=== PATIENT | female | born 1960 | race Caucasian/White ===

== ENCOUNTER 2017-07-04 12:21 | Emergency (ER) | payer OTHER, SELFPAY ==
[2017-07-04 12:22] VITALS: BP 128/97; PULSE 84; RESP 16; TEMP 36.9; O2SAT 97; BMI 23.1
[2017-07-04 13:51] LABS: Bacteria 0 SEEN /hpf (None Seen); Mucous, Urine 0 SEEN /hpf (<or=2+); Red Blood Cells-Urine 0 SEEN /hpf (0-5)
[2017-07-04 13:56] LABS: Color, Urine Yellow (Yellow); Glucose, Dipstick Normal (Normal); Ketone-Dipstick Negative (Negative); Leukocyte Esterase-Dipstick Negative /ul (Negative); Nitrite-Dipstick Negative (Negative); Occult Blood-Urine Negative /ul (Negative); Protein-Dipstick Negative (Negative); Specific Gravity, Urine 1.015 (1.002-1.030); Urine Bilirubin Dipstick Negative (Negative); Urine Clarity Clear (Clear); Urine Urobilinogen Normal (Normal)
[2017-07-04 13:58] LABS: Pregnancy, Serum, hCG Quali. NEGATIVE Negative (0-9 Nonpreg)
[2017-07-04 14:07] LABS: Squamous Epithelial Cells - UA 0-5 SEEN /hpf (5-10); White Blood Cells 0-5 SEEN /hpf (0-5)
--- NOTE | 2017-07-04 14:27 | CT_ITS ---
STUDY: CT ABDOMEN AND PELVIS WITHOUT CONTRAST REASON FOR EXAM: Female, 56 years old. 4 day history of abdominal pain and right flank pain. RADIATION DOSAGE (If Supplied By Facility): CTDIvol = ( 6.63 ) mGy, DLP = ( 309.86 ) mGycm TECHNIQUE: Transaxial images were obtained from the dome of the diaphragm to the symphysis pubis without oral contrast, and without intravenous contrast. Sagittal and coronal images were reconstructed. Individualized dose optimization techniques were used for this CT. COMPARISON: None. FINDINGS: Minimal increased markings at the right lung base suggests atelectasis. The visualized portions of the heart are within normal limits. Normal liver. Normal gallbladder and extrahepatic biliary system. Normal spleen. Normal pancreas. Normal bilateral adrenal glands. Normal right kidney. Normal left kidney. Normal visualized stomach. Normal small intestine. Moderate amount of fecal material is seen in the colon. The appendix is visualized and appears normal. Normal abdominal aorta. Normal inferior vena cava. Normal retroperitoneum. Normal urinary bladder. Normal abdominal wall. There are diffuse degenerative changes of the visualized lumbar spine. CT/Abdomen/Pelvis without Cont IMPRESSION: Moderate amount of fecal material is seen in the colon. Electronically Signed: Ramesh Queen MD at 15:04 EDT Tel [phone], Service support ,
[2017-07-04 14:40] VITALS: BP 130/64; PULSE 87; RESP 18; O2SAT 100
--- NOTE | 2017-07-04 15:38 | ED.VISSUMM ---
- ER Visit Summary Date of Service: 07/04/17 Chief Complaint: Right flank pain History of Present Illness: The patient is a 56 F presenting with right flank pain which started on Tuesday. She states pain has been intermittent. It is in the right lower quadrant radiating to her back. She has had decreased appetite. She has had constipation. She denies dysuria or hematuria. No history of kidney stones. No fever or chills. No other complaints. On arrival to the ED patient states her pain is currently resolved. Physical Examination: Vitals are stable. Patient is afebrile. Alert no acute distress. HEENT exam is unremarkable. Neck is supple. Lungs are clear and equal bilaterally. Heart is regular rate and rhythm. Abdomen is soft mild right lower quadrant tenderness, no rebound or guarding Back: No CVA tenderness Extremities are unremarkable. Skin is warm and dry. No focal neurologic deficit. Remainder of exam is unremarkable. Emergency Department Course and Treatment: HCG negative. Urinalysis unremarkable. CT abdomen pelvis shows moderate amount of stool, normal appendix. Patient declined pain medications in the emergency department. On reevaluation, she continues to be pain-free. She is advised to take MiraLAX. Advised follow-up with primary care physician. Advised return to ED for worsening complaints. Disposition: Discharge home Impression: Right flank pain, constipation This note was generated with [employer] dictation software. It may contain incorrect words, spelling, and punctuation that were not noted in review of the chart prior to signing ED Disposition - Plan for ED Patient: Chief Complaint: Flank Pain Referrals: Sam Birmingham MD [Primary Care Provider] -
--- NOTE | 2017-07-04 15:45 | ED.DEP ---
ED Disposition - Plan for ED Patient: Chief Complaint: Flank Pain Instructions: ED Constipation Referrals: Sam Birmingham MD [Primary Care Provider] -
[2017-07-04 15:55] VITALS: BP 127/67; PULSE 64; RESP 18; O2SAT 99
== END 2017-07-04 15:56 | disposition home or self-care (01) ==
PROVIDERS: Emergency Provider Emergency Medicine; Family Provider Family Medicine; PCP Family Medicine
DX: R10.31 Right lower quadrant pain (principal); K59.00 Constipation, unspecified; E78.00 Pure hypercholesterolemia, unspecified; Z79.899 Other long term (current) drug therapy
CPT/HCPCS: 74176; 81001; 84703; 99283; A4216

== ENCOUNTER 2021-07-16 09:47 | Day surgery (SDC) | payer OTHER, SELFPAY ==
--- NOTE | 2021-06-30 09:48 | PCM.HP.BLA ---
History and Physical Date of Admission: 07/16/21 HPI: The patient is a 60 year old female presenting for pre-operative visit. She is scheduled for Hysteroscopy D&C with polyp resection , for PMB and endocervical polyp on 07/16/21. Procedure discussed along with risks, benefits and complications. Other alternatives discussed for management. Consent form signed? Yes. ? ? PAST MEDICAL HISTORY PAST MEDICAL HISTORY Diagnosis Date ? Family history of ischemic heart disease ? ? Hyperlipidemia ? ? Migraine headache ? ? menstrual trigger ? Recurrent UTI ? ? post-coital prophylaxis ? Routine gynecological examination ? ? Dr Fields ? ? PAST SURGICAL HISTORY PAST SURGICAL HISTORY Procedure Laterality Date ? BIOPSY BREAST OPEN INCISIONAL ? ? stereotactic x 2 - L breast ? DELIVERY ONLY ? ? ? for all 3 children ? LIG/TRNSXJ FLP TUBE ABDL/VAG APPR UNI/BI ? ? ? Tubal ligation ? ? ? CURRENT MEDICATIONS Current Outpatient Medications Medication Sig Dispense Refill ? SUMAtriptan (IMITREX) 50 mg tablet Take 1 tablet by mouth as needed. Take at onset of headache. May repeat dose after 2 hours. 9 tablet 5 ? fluocinolone (SYNALAR) 0.025 % cream Apply to ears daily as needed. 30 g 3 ? sulfamethoxazole-trimethoprim (BACTRIM DS) 800-160 mg per tablet One tab after coitus prn 20 tablet 2 ? Magnesium 200 mg tab Take by mouth. (Patient not taking: Reported on 08/11/2020 ) ? ? ? potassium (POTASSIMIN ORAL) Take by mouth. (Patient not taking: Reported on 08/11/2020 ) ? ? ? senna (SENOKOT) 8.6 mg tab Take 8.6 mg by mouth twice daily. (Patient not taking: Reported on 04/21/2021 ) ? ? ? MULTIVIT WITH CALCIUM,IRON,MIN (WOMEN'S DAILY MULTIVITAMIN ORAL) Take 1 tablet by mouth once daily. ? ? ? aspirin, enteric coated (ADULT LOW DOSE ASPIRIN) 81 mg EC tablet Take 1 tablet by mouth once daily. ? 0 ? ZINC ORAL Take by mouth. ? ? ? omega-3 acid ethyl esters(OMACOR 1 GRAM CAP) 1 tab tid w meals 90 5 ? No current facility-administered medications for this visit. ? ? ALLERGIES: Lovastatin and Macrobid [Nitrofurantoin Monohyd/M-Cryst] ? PERSONAL HISTORY: SOCIAL HISTORY Social History ? Tobacco Use ? Smoking status: Never Smoker ? Smokeless tobacco: Never Used Substance Use Topics ? Alcohol use: No ? Drug use: No ? FAMILY HISTORY: FAMILY HISTORY FAMILY HISTORY Problem Relation Age of Onset ? Coronary Artery Disease Mother ? ? [place] in mid 70s ? Hypertension Mother ? ? Thyroid Mother ? ? Coronary Artery Disease Father 56 ? CAD since age 56. ? Hypertension Father ? ? other (brain tumor) Father ? ? Hypertension Sister ? ? Hypertension Sister ? ? Hypertension Sister ? ? Coronary Artery Disease Brother 36 ? [place] age 36. ? Hypertension Brother ? ? Coronary Artery Disease Paternal Grandmother ? ? suddenly prior to age 60. ? No Known Problems Other ? ? Colon Cancer No Family History ? ? Diabetes No Family History ? ? ? REVIEW OF SYMPTOMS: GENERAL: denies fevers or chills ENDOCRINOLOGY: has not been on steroids Cardiology : denies palpitations or chest pain Respiratory: denies SOB or cough Hematology: denies history of prolonged bleeding or easy bruising or VTE Allergy: Denies history of personal or family history of allergy to anesthesia ? PHYSICAL EXAMINATION: ? VITALS: Last menstrual period 10/26/2012. ? GENERAL: The patient is well nourished, well hydrated in no acute distress. , The patient is oriented to time, place, and person. NECK: Supple. No lynphadenopathy, normal thyroid, no thyromegaly. LUNGS: Clear to auscultation bilaterally. no wheezes, rhonchi or rales HEART: Regular rate and rhythm, Normal heart sounds and No murmurs or gallops ? EMB on 04/28/21 proliferative endometrium and benign endocervical polyp ? IMPRESSION: PMB, endocervical polyp ? PLAN: The risks/benefits/alternatives and personal involved for the planned hysteroscopy D&C w/ polyp resection were reviewed with the patient. Her questions were answered to her satisfaction and she desires to proceed. Consent was signed. I reviewed with her postop instructions and expectations. ? ? I have reviewed and updated past medical and surgical history, medications and allergies This H&P was completed in my office on 06/26/21 Assessment & Plan Assessment/Plan (1) PMB (postmenopausal bleeding): (2) Endometrial polyp:
[2021-07-16] MEDS: Lactated Ringers 1,000 ML 75 ML IV (10:05)
[2021-07-16 10:17] VITALS: BP 142/83; PULSE 75; RESP 16; TEMP 37.1; O2SAT 100; BMI 28.0
[2021-07-16] MEDS: Scopolamine 1mg/72hr Patch 1 PATCH TD (10:21)
[2021-07-16] MEDS: Ketorolac 30 MG/ML Syringe IV (10:21)
[2021-07-16 10:31] LABS: Hematocrit 43.7 % (37-47); Hemoglobin 14.5 g/dL (12.0-15.0); Mean Corp Hgb Conc 33.2 g/dL (32-36); Mean Corpuscular Hgb 30.4 pg (27.0-32.0); Mean Corpuscular Volume 91.6 fL (81-99); Mean Platelet Vol. 9.9 fl (6.2-12.0); Platelet Count 224 K/mm3 (150-450); RBC Distribution Width CV 11.8 % (11.6-14.6); RBC Distribution Width SD 39.7 fl (35.1-43.9); Red Blood Count 4.77 M/mm3 (4.2-5.4); White Blood Count 4.7 K/mm3 (4.4-11.0)
[2021-07-16 10:54] LABS: Anion Gap 3 (5-15); BUN 20 mg/dL (7-18); BUN/Creat Ratio 23.6 RATIO (10-20); Chloride 107 mmol/L (98-107); Creatinine, Serum 0.85 mg/dL (0.55-1.02); EST Glomerular Filtration Rate 72 mL/min (>60); Est Glom Filt Rate - Afr Amer 87 mL/min (>60); Estimated Creatinine Clearance 64.24 ml/min; Glucose 96 mg/dL (74-106); Sodium Level 138 mmol/L (136-145)
--- NOTE | 2021-07-16 11:20 | EMB_PTH ---
PATIENT: IRAIS OLIVERA LOC: [facility] – [place] U[place][id number] AGE/SX: 60/F ROOM: RE07/16/[address]: Dr. Anamika Mcdermott MD : [id number] BED: DIS: 07/16/2021 SPEC #: [id number] RECD: 07/16/21 16:34 STATUS: DEENA CARPIO #: [id number] ROYAL: 07/16/21 11:[address]: Anamika Mcdermott DEPT: SURGICAL PATHOLOGY RECD BY: Katelynn Gutierrez ENTERED: 07/17/21 08:39 SP TYPE: ENDOM BX/C OT DR: JERONIMO Whittington Tissues: Endometrium, NOS Procedures: Surgery Specimen Level IV HEADER OPERATION: Hysteroscopy, D&C Symphion, Polypectomy PRE-OP DIAGNOSIS: PMB Postmenopausal bleeding, endometrial polyp TISSUE SUBMITTED: Endometrial curettings and polyp MICROSCOPIC DIAGNOSIS Endometrial curettings and polyp: Simple endometrial hyperplasia without atypia. Fragments of benign endocervical musosa. COMMENT Case has been reviewed in consultation with Dr. Fernandez who concurs with the above diagnosis. IDC:AM MICROSCOPIC DESCRIPTION Slides are reviewed. GROSS DESCRIPTION Received in formalin is one container labeled with the patient name and designated endometrial curettings and polyp. The specimen consists of multiple irregular fragments of hemorrhagic soft tissue mixed with mucoid tissue measuring in aggregate 3 x 2.5 x 0.3 cm. The specimen is totally submitted in one cassettes. /SJ 07/20/2021 TC:5 CPT: 25617
--- NOTE | 2021-07-16 11:59 | PCM.DC ---
Discharge Instructions Diet Discharge Diet: No restrictions Activity May resume sexual activity in: 2 weeks Lifting Restrictions: none Dressing / Incision Call your doctor if your incision/area has: Sudden Increased Bleeding and Foul Smelling Discharge Call your doctor if you observe: Fever of 101 or Higher and Using more than 1 pad per hour (for 2 hrs in a row) Follow Up Care Please Follow Up With: Anamika Mcdermott MD When: 2-4 weeks or as needed. Call [phone] to make an appointment or with any concerns. Test Results: Test results from this visit will be discussed in further detail at your follow-up appointment, if applicable. Discharge Plan Admission Primary Reason for Your Visit: D&C Attending Provider: Anamika Mcdermott Primary Care Provider: Alyce Oliva Discharge Orders/Prescriptions Prescriptions: Continued multivitamin Capsule 1 cap PO DAILY RF: 0 biotin 2,500 mcg Tablet 2,500 mcg PO DAILY RF: 0 omega-3 fatty acids Capsule 1,000 mg PO DAILY RF: 0 zinc 50 mg Capsule 50 mg PO DAILY RF: 0 sumatriptan succinate 50 mg Tablet 50 mg PO Q2H PRN (Reason: MIGRAINES) RF: 0 sulfamethoxazole-trimethoprim [Bactrim DS] 800-160 mg Tablet 1 tab PO BID PRN (Reason: UTI) RF: 0 Excedrin Migraine 250-250-65 mg Tablet 1 tab PO Q6H PRN (Reason: MIGRAINES) RF: 0 Referrals / Follow Up: Alyce Oliva PA [Primary Care Provider] - Disposition Disposition (needs filled in before D/C Order can be placed): Home, Self Care
--- NOTE | 2021-07-16 12:00 | OP.PCM_ITS ---
Problems Associated Problem List Diagnoses (1) PMB (postmenopausal bleeding): (2) Endometrial polyp: Report of Operation Date of Procedure: 07/16/21 Pre-Operative Diagnosis: PMB, endometrial polyp Post-Operative Diagnosis: same Surgery/Procedure Performed:: Hysteroscopy D&C w/ polyp resection Description of Surgical Findings:: normal cervix and vagina, stenotic cervix w small endometrial polyp at the fundus Surgeon: Anamika Mcdermott payroll technician: None Type of Anesthesia: MAC Anesthesiologist: Brennan Soriano Special Medications: none Specimen's removed: endometrial curettings and polyp Drains: none Estimated Blood Loss (mL): 10 Fluids Replaced: 400 Description of Procedure: The patient was taken to the OR where she was prepped and draped in dorsal lithotomy position. The weighted speculum was placed in the vagina and the anterior lip of the cervix was grasped with a single-tooth tenaculum. The cervix was dilated serially with Hegar dilators. It took some time to dilate the cervix safely because the internal cervical os was quite stenotic. The symphion hysteroscope was placed into the uterine cavity and the above findings were noted. Bilateral tubal ostia [were] identified. The symphion resection device was inserted and readied. It was used to resect the polyp and do a visual curettage of the endometrial cavity.. The instruments were removed from the vagina. The specimen was handed off and sent to pathology. All sponge and needle counts were correct. Vaginal sweep was performed by me. The patient was awakened and taken to the recovery room in stable condition. Calculated hysteroscopic fluid deficit was 450 cc of normal saline Grafts/Implants Used: none Procedure Start Time: 11:38 Procedure Stop Time: 11:57 Complications none Admit VTE Documentation VTE Present on Admission: No VTE Mechan Device Prophylaxis: SCD's VTE Pharm Prophylaxis ordered?: No Reason prophylaxis not ordered:: Procedure Not Indicated
[2021-07-16 12:05] VITALS: BP 108/75; BP 142/83; PULSE 70; RESP 16; TEMP 36.6; O2SAT 97
[2021-07-16 12:10] VITALS: BP 116/77; BP 142/83; PULSE 70; RESP 16; O2SAT 94
[2021-07-16 12:15] VITALS: BP 111/80; BP 142/83; PULSE 66; RESP 16; O2SAT 96
[2021-07-16 12:21] VITALS: BP 113/80; BP 142/83; PULSE 60; RESP 16; TEMP 36.3; O2SAT 95
[2021-07-16 12:45] VITALS: BP 142/83
== END 2021-07-16 12:45 | disposition home or self-care (01) ==
LOC: SDC 09:49 → AC 09:52
PROVIDERS: PCP Physician Assistant; Referring Provider Obstetrics & Gynecology; Visit Provider Obstetrics & Gynecology
PROC: 0UB98ZZ Excision of Uterus, Via Natural or Artificial Opening Endoscopic (ICD-10-PCS; CPT 58558; principal; 2021-07-16 11:05)
DX: N85.01 Benign endometrial hyperplasia (principal); N95.0 Postmenopausal bleeding; E78.5 Hyperlipidemia, unspecified; G43.909 Migraine, unspecified, not intractable, without status migrainosus; G25.81 Restless legs syndrome; Z79.899 Other long term (current) drug therapy; E78.00 Pure hypercholesterolemia, unspecified
CPT/HCPCS: 58558; 00952; 80048; 85027; 88305; J7120; J2405

== ENCOUNTER 2024-06-18 19:29 | Emergency (ER) | payer BC, SELFPAY ==
[2024-06-18 19:30] VITALS: BP 154/96; PULSE 84; RESP 16; TEMP 36.1; O2SAT 98; BMI 30.6
--- NOTE | 2024-06-18 19:51 | ED.VIS.CHEST ---
HPI History of Present Illness Chief Complaint: Chest Pain Informant: patient Onset/Context/Timing Onset: Today Activity at onset: sudden and rest (Sitting) Timing: Continuous Quality: Positive for Tightness Location: Left Chest Worsened By: Nothing Relieved By: Nothing Associated Symptoms: Positive for Dyspnea and Palpitations; Negative for Nausea, Vomiting, Diaphoresis, Cough, Fever, Lightheadedness or Acid Reflux Narrative Narrative: Patient presents with chest pain that began today. Patient states she was sitting when the pain began. Patient states that has been constant. Patient describes it as tightness. Patient states it is over the left side of her chest. Patient states nothing makes it worse and nothing makes it better. Patient admits to some mild shortness of breath with it. Patient also admits to some palpitations. Patient states she has some recent rhinorrhea. Patient denies any fevers or chills. Patient denies any cough or diaphoresis. Patient denies any nausea or vomiting. CVD Risk Factors: Positive for Family History 1' </=55; Negative for Hypertension, Diabetes, Hypercholesterolemia or Smoking PE Risk Factors: Positive for Cancer; Negative for Recent Travel/Surgery, Recent Immobilization, Prior DVT or PE or OCP + Smoking + >/=35 PFSH PFSH Medical History Wears glasses Post-menopausal High cholesterol Restless legs Migraine headache Non-smoker Shortness of breath on exertion Endometrial polyp PMB (postmenopausal bleeding) Home Medications ?Medication ?Instructions ?Recorded ?Last Taken ?Type fhycahp-gtawgqoygscai-osuqrtst 250 1 tab PO Q6H PRN MIGRAINES 07/08/21 Unknown History mg-250 mg-65 mg tablet (Excedrin Migraine) biotin 2,500 mcg tablet 2,500 mcg PO DAILY 07/08/21 Unknown History multivitamin 1 cap PO DAILY 07/08/21 Unknown History omega-3 fatty acids 1,000 mg PO DAILY 07/08/21 Unknown History sulfamethoxazole 800 1 tab PO BID PRN UTI 07/08/21 Unknown History mg-trimethoprim 160 mg tablet (Bactrim DS) sumatriptan succinate 50 mg tablet 50 mg PO Q2H PRN MIGRAINES 07/08/21 Unknown History zinc 50 mg capsule 50 mg PO DAILY 07/08/21 Unknown History Allergy/AdvReac Type Severity Reaction Status Date / Time lovastatin Allergy Rash Verified 06/18/24 19:30 nitrofurantoin (From Allergy Rash Verified 06/18/24 19:30 Macrobid) Surgical History Hx of laparoscopy History of lumpectomy of both breasts History of Social History Smoking Status: Never smoker ROS ROS ED Constitutional Constitutional ED: Denies chills or fever(s) Eyes Eyes: Denies blurry vision or change in vision ENT ENT ED: Reports rhinorrhea; Denies sore throat Cardiovascular Cardiovascular: Reports as per HPI and chest pain; Denies palpitations Respiratory/Chest Respiratory/Chest: Reports dyspnea; Denies cough Gastrointestinal Gastrointestinal: Denies nausea or vomiting Genitourinary Genitourinary ED: Denies dysuria or hematuria Musculoskeletal Musculoskeletal: Reports neck pain; Denies back pain Integumentary Denies abscess or rash Neurologic Neurologic: Denies headache(s) or weakness Allergic/Immunologic Allergic/Immunologic ED: Denies mouth swelling or urticaria EXAM Physical Exam Const Vital Signs: 06/18/24 19:30 06/18/24 19:36 06/18/24 20:25 Temperature 96.9 F L Temperature Source Oral Pulse Rate 84 Respiratory Rate 16 Respiratory Effort Short of Breath Blood Pressure 154/96 H Blood Pressure Mean 115 Pulse Ox 98 Oxygen Delivery Method Room Air 06/18/24 20:26 06/18/24 20:54 06/18/24 22:00 Temperature Temperature Source Pulse Rate 83 71 76 Respiratory Rate 18 Respiratory Effort Blood Pressure 150/107 H 118/89 H 106/79 Blood Pressure Mean 121 98 88 Pulse Ox 94 90 95 Oxygen Delivery Method Room Air Room Air Room Air Positive well nourished and well developed General Appearance ED: well developed and NAD HEENT Reports moist mucous membranes Neck supple and no JVD Resp normal respiratory effort and clear to auscultation bilaterally Cardio regular rate and regular rhythm GI soft to palpation, non-tender and non-distended Extremity normal to inspection General Extremety ED: Negative for edema or tenderness General Extremity: Negative for edema Neuro oriented x3, CN's II-XII intact bilaterally and no sensory deficits noted Sensorium / Orientation: awake and alert Motor Exam: strength 5/5 throughout Psych mental status grossly normal Heart Score History: Slightly/Non-Suspicious ECG: Nonspecific Repolarization Age: >/= 65 years Risk Factors: 1 or 2 Risk Factors Troponin: </= Normal Limit Score: 4 MDM MDM MDM Narrative Medical decision making narrative: Differential diagnosis includes pneumonia, bronchitis, cardiac dysrhythmia, cardiac ischemia, electrolyte abnormality, gastroesophageal reflux disease, pulmonary embolism, and anxiety. EKG will be obtained to assess for cardiac dysrhythmia and cardiac ischemia. Chest x-ray will be obtained to assess for pneumonia and bronchitis. CBC will be obtained to assess for leukocytosis and anemia. Basic metabolic profile will be obtained to assess for electrolyte abnormality and renal function. High-sensitivity troponin will be obtained to assess for cardiac ischemia. 2-hour repeat high-sensitivity troponin will be obtained to assess for ongoing cardiac ischemia. D-dimer will be obtained to assess for pulmonary embolism. Lab Data Attestation: I reviewed the patient's lab results. Lab results narrative: CBC was reviewed and was within normal limits. Basic metabolic profile was reviewed. Glucose was mildly elevated at 134. BUN was slightly elevated at 22. The remainder is within normal limits. D-dimer was reviewed and was normal at 0.35. High-sensitivity troponin was reviewed and was normal at 7. 2-hour repeat high-sensitivity troponin was reviewed and was normal at 7. Labs: Laboratory Results - last 24 hr 06/18/24 06/18/24 19:46 21:46 WBC 9.2 RBC 4.85 Hgb 14.6 Hct 43.3 MCV 89.3 MCH 30.1 MCHC 33.7 RDW Std Deviation 38.8 RDW Coeff of Edna 11.9 Plt Count 235 MPV 10.1 Immature Gran % (Auto) 0.200 Neut % (Auto) 64.8 Lymph % (Auto) 23.4 [place] % (Auto) 7.6 Eos % (Auto) 3.1 Baso % (Auto) 0.9 Absolute Neuts (auto) 6.0 Absolute Lymphs (auto) 2.16 Nucleated RBC % 0 D-Dimer Quant (PE/DVT) 0.35 Sodium 143 Potassium 3.8 Chloride 107 Carbon Dioxide 21.5 Anion Gap 14 BUN 22 H Creatinine 1.12 Estim Creat Clear Calc 55.37 Est GFR (MDRD) Non-Af 55 L BUN/Creatinine Ratio 19.8 Glucose 134 H Calcium 9.6 Troponin T High Sens 7 Troponin T Hi Sens 2 Hr 7 Radiography Chest X-Ray - ED: 1 View, Read by ED Physician, Read by Radiologist and No Acute Disease Diagnostic Testing: Clinical Impression(s) from Imaging Studies Chest X-Ray 06/18/24 20:23 IMPRESSION: No Acute Findings. Reading Location: [facility] Portable 1 view chest x-ray was obtained. On my independent interpretation, lung cifuentes are clear. There is normal cardiac silhouette. Bony thorax is normal. There is no acute process noted. Radiologist also interpreted the x-ray and agrees. EKG Initial EKG: Attestation: I personally reviewed and interpreted this EKG as follows: Interpretation: Sinus Rhythm (85) and No Acute Injury Pattern Comments: EKG was obtained. On my independent interpretation, it showed a normal sinus rhythm with a rate of 85. FL interval, QRS interval, and QTc intervals were all normal. There is borderline left axis deviation at -13. There is minimal voltage criteria for left ventricular hypertrophy. There are no acute ST or T wave changes. Prior EKG tracings: not available for review Prior: No Prior Treatment and Re-Evaluation :: Patient was ordered nitroglycerin and aspirin. After nitroglycerin, patient stated she had some pain in her abdomen and worsening pain in her left arm. Patient states this resolved after 5 minutes. Currently, patient feels better. Patient wants to go home. Patient was advised of her findings. Patient does have a HEART score of 4. However, I feel the patient is able to go home given 2 normal troponins and she is currently asymptomatic. Patient was instructed to follow-up with her primary care physician for further evaluation. Patient and spouse understood and were agreeable with plan. All questions were answered. Discharge Plan Triage Chief Complaint: Chest Pain ED Provider: José Manuel Jernigan Dx/Rx/DC Orders Clinical Impression: Chest pain, Elevated blood pressure reading without diagnosis of hypertension Instructions: ED Chest Pain, Uncertain Cause Prescriptions: No Action multivitamin Capsule 1 cap PO DAILY biotin 2,500 mcg Tablet 2,500 mcg PO DAILY omega-3 fatty acids Capsule 1,000 mg PO DAILY zinc 50 mg Capsule 50 mg PO DAILY sumatriptan succinate 50 mg Tablet 50 mg PO Q2H PRN (Reason: MIGRAINES) sulfamethoxazole-trimethoprim [Bactrim DS] 800-160 mg Tablet 1 tab PO BID PRN (Reason: UTI) Excedrin Migraine 250-250-65 mg Tablet 1 tab PO Q6H PRN (Reason: MIGRAINES) Primary Care Provider: Alicja Busby Referrals: Alicja Busby, JUNIOR STAFF ACCOUNTANT [Primary Care Provider] - 5-7 Days Alyce Oliva PA [Non-Staff] - 5-7 Days Print Language: Yemeni Disposition Disposition: Home, Self Care
--- NOTE | 2024-06-18 20:08 | EKG12_ITS ---
Test Reason : CP Blood Pressure : */* mmHG Vent. Rate : 85 BPM Atrial Rate : 85 BPM P-R Int : 168 ms QRS Dur : 70 ms QT Int : 386 ms P-R-T Axes : 40 -13 37 degrees QTcB Int : 459 ms Normal sinus rhythm Minimal voltage criteria for LVH, may be normal variant ( R in aVL ) Inferior infarct , age undetermined Abnormal ECG No previous ECGs available Confirmed by Saman Haley ([id number]), slot editor MYNOR HUBER ([id number]) on 06/21/2024 10:01:59 AM Referred By: José Manuel Jernigan Confirmed By: Saman Haley
[2024-06-18 20:18] LABS: Absolute Lymphocyte Count 2.16 X10^3/uL (0.83-4.51); Basophil# 0.08 X10^3/uL; Basophil% 0.9 % (0-1); Eosinophil# 0.29 X10^3/uL; Eosinophils% 3.1 % (0-5); Hematocrit 43.3 % (37-47); Hemoglobin 14.6 g/dL (12.0-15.0); Lymphocyte # 2.16 X10^3/ul (0.83-4.51); Lymphocyte % 23.4 % (19-41); Mean Corp Hgb Conc 33.7 g/dL (32-36); Mean Corpuscular Hgb 30.1 pg (27.0-32.0); Mean Corpuscular Volume 89.3 fL (81-99); Mean Platelet Vol. 10.1 fl (6.2-12.0); Monocyte% 7.6 % (0-10); NRBC Flagged by Analyzer 0 % (0-5); Neutrophil # 5.97 X10^3/uL (2.7-7.7); Neutrophil % 64.8 % (47-70); Platelet Count 235 K/mm3 (150-450); RBC Distribution Width CV 11.9 % (11.6-14.6); RBC Distribution Width SD 38.8 fl (35.1-43.9); Red Blood Count 4.85 M/mm3 (4.2-5.4); White Blood Count 9.2 K/mm3 (4.4-11.0)
--- NOTE | 2024-06-18 20:23 | RAD_ITS ---
PROCEDURE: CHEST 1 VIEW (PORTABLE) 06/18/2024 REASON FOR EXAM: CHEST PAIN TECHNIQUE: Frontal view of the chest. COMPARISON: None FINDINGS: Hardware: None Heart: Cardiac and mediastinal contours are stable. Lungs: The lungs are clear. Bones: The bones are unremarkable. Other: RAD/Chest 1 View (Portable) IMPRESSION: No Acute Findings. Reading Location: [facility]
[2024-06-18] MEDS: Aspirin 81 MG TAB.CHEW 324 MG PO (20:24)
[2024-06-18] MEDS: Nitroglycerin SL (ED/IMG/CATH) 0.4 MG TABLET SL (20:24)
[2024-06-18 20:26] VITALS: BP 150/107; PULSE 83; O2SAT 94
[2024-06-18 20:29] LABS: D-Dimer Quantitative (DVT/PE) 0.35 FEU/ug/m (0.27-0.49)
[2024-06-18 20:54] VITALS: BP 118/89; PULSE 71; O2SAT 90
[2024-06-18 21:01] LABS: Troponin T High Sensitivity 7 ng/L (<=14)
[2024-06-18 21:02] LABS: Anion Gap 14 (5-15); BUN 22 mg/dL (4-19); BUN/Creat Ratio 19.8 RATIO (10-20); Calcium,Total 9.6 mg/dL (7.6-11.0); Carbon Dioxide 21.5 mmol/L (21.0-32.0); Chloride 107 mmol/L (98-108); Creatinine, Serum 1.12 mg/dL (0.70-1.20); EST Glomerular Filtration Rate 55 (>60); Estimated Creatinine Clearance 55.37 ml/min (50-250); Glucose 134 mg/dL (70-99); Potassium 3.8 mmol/L (3.3-5.1); Sodium Level 143 mmol/L (133-145)
[2024-06-18 22:00] VITALS: BP 106/79; PULSE 76; RESP 18; O2SAT 95
[2024-06-18 22:21] LABS: Troponin T High Sens 2 HR 7 ng/L (<=14)
[2024-06-18 22:32] VITALS: BP 119/85; PULSE 71; RESP 13; TEMP 36.1; O2SAT 95
== END 2024-06-18 22:36 | disposition home or self-care (01) ==
PROVIDERS: Emergency Provider Emergency Medicine; PCP Clinical Nurse Specialist Adult Health; Referring Provider Emergency Medicine; Visit Provider Emergency Medicine
DX: R07.9 Chest pain, unspecified (principal); R03.0 Elevated blood-pressure reading, without diagnosis of hypertension; E78.00 Pure hypercholesterolemia, unspecified; G43.909 Migraine, unspecified, not intractable, without status migrainosus; Z79.899 Other long term (current) drug therapy
CPT/HCPCS: 71045; 80048; 84484; 85025; 85379; 93005; 99283; A4216